=== PATIENT | female | born 1930 | race Caucasian/White ===

== ENCOUNTER 2020-03-03 09:25 | Outpatient (CLI) | payer OTHER ==
[~2020-03-03 09:25] MED LIST: AMOX1TAB12 PO; ANTIVERT25 M1 PO; CALTRATE 600600 MG PO; COZAAR25 MG PO; LIPOFLAVOVIT CA1 TAB PO; PRAVACHOL10 MG PO
== END 2020-03-03 09:39 | disposition home or self-care (01) ==
LOC: TOM 09:25
PROVIDERS: ATTEND Family Medicine
DX: R19.5 Other fecal abnormalities (principal)

== ENCOUNTER 2020-04-23 10:39 | Emergency (ER) | payer OTHER ==
[~2020-04-23] VITALS: Ht 152.4 cm; Wt 63.5 kg
[2020-04-23] MEDS ORDERED: PEPCID AC10 MG PO (10:52)
== END 2020-04-23 14:50 | disposition home or self-care (01) ==
LOC: ER 10:39
DX: M62.830 Muscle spasm of back (principal); M54.5 Low back pain